=== PATIENT | female | born 1980 | race Hispanic/Latino ===

== ENCOUNTER 2022-10-18 11:43 | Outpatient (CLI) | payer MEDICAID | END 2022-10-18 11:44 | disposition home or self-care (01) | LOC: CSHULT 11:43 | PROVIDERS: ATTEND Nurse Practitioner Women's Health | DX: N92.1 Excessive and frequent menstruation with irregular cycle (principal); D25.9 Leiomyoma of uterus, unspecified | CPT/HCPCS: 76856 ==